=== PATIENT | female | born 1990 | race Caucasian/White ===

== ENCOUNTER 2017-02-11 15:16 | Emergency (ER) | payer OTHER ==
[~2017-02-11] VITALS: Ht 170.2 cm; Wt 54.2 kg
[~2017-02-11 15:16] MED LIST: ACTIGALL300 MG PO; AMOXICILLIN500 M1 PO; ATARAX10 MG PO; BACTRIM,SEPT1 TABLET; Benadryl PO; Chromagen, Feogen, M PO; DILAUDID2 MG PO; FERROCITE324 MG PO; Feosol PO; HYDROXYZINE PAM25 M1 PO; IBUPROFEN800 MG PO; KEFLEX500 MG PO; MULTIVITAMIN1 EACH PO; Motrin PO; NATALCARE RX1 TABLE1 PO; NITROFURANTOIN100 MG PO; ORTHO EVRA PA1 PATCH TP; PREDNISONE20 MG PO; PRENATA CHEWAB1 EACH PO; PRENATAL1 EACH PO; TESSALON PERLE100 MG PO; URSODIOL300 MG PO; ZOFRAN ODT4 MG PO; ZOFRAN4 MG PO
[2017-02-11 16:17] LABS: HEMATOCRIT 35.3 % (36.0-46.0); MCH 29.2 PG (29.0-34.0); MCHC 33.7 G/DL (30.0-36.0); MCV 86.5 FL (83-99); PLATELET COUNT 295 K/uL (156-360); RBC DIS.WIDTH-CV 12.8 % (11.8-14.6); RED BLOOD COUNT 4.08 M/uL (3.80-5.20); WHITE BLOOD COUNT 4.9 K/uL (4.1-10.2)
[2017-02-11 16:28] LABS: CHLORIDE 103 mEq/L (99-109); POTASSIUM 3.5 mEq/L (3.7-5.4); SODIUM 139 mEq/L (136-147)
[2017-02-11 16:30] LABS: GLUCOSE 96 mg/dL (70-99)
[2017-02-11 16:31] LABS: ANION GAP 9 MEQ/L (2-14)
[2017-02-11 16:32] LABS: TOTAL BILIRUBIN 1.9 mg/dL (0.0-1.0)
[2017-02-11 16:34] LABS: ALKALINE PHOSPHATASE 45 IU/L (3-129); GFR ESTIMATE (CALCULATED) > 59 mL/min/
[2017-02-11 16:35] LABS: UREA NITROGEN (BUN) 22 mg/dL (9-23)
[2017-02-11 16:37] LABS: LIPASE 8 U/L (1.0-51.0)
[2017-02-11 16:44] LABS: QUANTITATIVE HCG < 4.0 MIU/ML
[2017-02-11 17:21] LABS: ADD MIUA? YES; BILIRUBIN NEGATIVE; BLOOD NEGATIVE; COLOR YELLOW ((YELLOW)); GLUCOSE (STRIP) NEGATIVE; KETONES 20; LEUKOCYTES SMALL; NITRITE NEGATIVE; PROTEIN (STRIP) NEGATIVE; SPECIFIC GRAVITY 1.025 (1.000-1.030); UROBILINOGEN 0.2 MG/DL (0.2-1.0)
[2017-02-11 17:31] LABS: BACTERIA NONE SEEN /HPF; EPITHELIAL CELLS 2+ /HPF; MUCUS 3+ /LPF; RED BLOOD CELLS 0-5 /HPF (0-5); UCUL ADDED? NO; WHITE BLOOD CELLS 0-5 /HPF (0-5)
[2017-02-11] MEDS ORDERED: MOTRIN600 MG PO (17:33)
[2017-02-11 17:40] VITALS: BP 133/84
== END 2017-02-11 17:41 | disposition home or self-care (01) ==
LOC: EME 15:16
PROVIDERS: Physician Assistant
DX: K80.20 Calculus of gallbladder without cholecystitis without obstruction (principal)
CPT/HCPCS: 76705; 80053; 81003; 83690; 84702; 85027; 99281; 99284; J1885

== ENCOUNTER 2017-07-30 10:45 | Day surgery (SDC) | payer OTHER ==
[~2017-07-30] VITALS: Ht 170.2 cm; Wt 52.2 kg
[~2017-07-30 10:45] MED LIST changes: +MOTRIN600 MG PO; +SEROQUEL12.5 MG PO
[2017-07-30 11:06] VITALS: BP 112/74
[2017-07-30] MEDS ORDERED: NORCO 5/3251 TABLET PO (13:51)
[2017-07-30 14:56] VITALS: BP 122/85
[2017-07-30 16:01] VITALS: BP 119/77
== END 2017-07-30 16:04 | disposition home or self-care (01) ==
LOC: SDC 10:45
PROC: 0FT44ZZ Resection of Gallbladder, Percutaneous Endoscopic Approach (ICD-10-PCS; principal; 2017-07-30)
DX: K80.10 Calculus of gallbladder with chronic cholecystitis without obstruction (principal); D64.9 Anemia, unspecified
CPT/HCPCS: 88304; J0131; J1100; J1170; J2250; J2405; J2710; J3010; J7643; S0074